=== PATIENT | female | born 1985 | race Caucasian/White ===

== ENCOUNTER 2017-10-25 21:36 | Emergency (ER) | payer OTHER ==
[2017-10-26 00:18] LABS: GLUCOSE, URINE (UA) NEGATIVE (NEGATIVE); KETONES,URINE (UA) 15 mg/dL (NEGATIVE); LEUKOCYTE ESTERASE, URINE NEGATIVE (NEGATIVE); NITRITE,URINE NEGATIVE (NEGATIVE); OCCULT BLOOD,URINE MODERATE (NEGATIVE); PH,URINE 5.5 PH (5.0-7.5); PROTEIN,URINE 30 mg/dL (NEGATIVE); UROBILINOGEN,URINE 0.2 (NORMAL) E.U./dL (NORMAL)
[2017-10-26 00:20] LABS: CLARITY,URINE CLEAR (CLEAR)
[2017-10-26 00:22] LABS: BILIRUBIN,URINE NEGATIVE (NEGATIVE); ICTOTEST,URINE NEGATIVE
[2017-10-26 00:25] LABS: BACTERIA,URINE Few /HPF (None Seen); SQUAMOUS EPITHELIAL CELL,UR MOD Squamous (<= Few)
[2017-10-26 00:26] LABS: MUCUS,URINE Few Strands
--- NOTE | 2017-10-26 00:55 | ED Physician Documentation ---
PD HPI BACK PAIN - Stated complaint Stated Complaint: MID/LOW BACK PX/ABDOM PAIN - Chief complaint Chief Complaint: Abd Pain - History obtained from History obtained from: Patient - History of Present Illness Timing - onset: Today Timing - details: Abrupt onset, Intermittant Location: Mid, Right, Left Quality: Pain Associated symptoms: No: Fever, Weakness, Numbness, Incontinent of urine, Unable to urinate, Hematuria, Incontinent of stool Improves with: Nothing Worsened by: No: Movement, Lifting, Twisting, Palpation Similar symptoms before: Has not had sx before Recently seen: Not recently seen - Additional information Additional information: c/o abdominal pain bilaterally radiating around to back associated with nausea, episodic throughout the day without apparent exacerbating or ameliorating factors Review of Systems Constitutional: reports: Reviewed and negative Cardiac: reports: Reviewed and negative Respiratory: reports: Reviewed and negative GI: reports: Abdominal Pain, Nausea. denies: Vomiting, Constipation, Diarrhea : denies: Dysuria, Frequency PD PAST MEDICAL HISTORY - Past Medical History Neuro: Headache/migraine - Past Surgical History /[facility]: section HEENT: Tonsil/Adenoidectomy - Present Medications Home Medications: Ambulatory Orders Medication Instructions Recorded Confirmed Loratadine [Claritin] 10 mg PO 10/25/17 Montelukast [Singulair] 10/25/17 SUMAtriptan [Imitrex] 25 mg PO 10/25/17 Topiramate [Topamax] 10/25/17 Levonorgestrel [Mirena] 1 each IY 10/26/17 Ondansetron Odt [Zofran] 4 mg TL Q6H PRN #10 tablet 10/26/17 - Allergies Allergies/Adverse Reactions: Allergies Allergy/AdvReac Type Severity Reaction Status Date / Time thimerosal Allergy Unknown Verified 10/25/17 21:47 - Social History Does the pt smoke?: No Smoking Status: Never smoker Does the pt drink ETOH?: No Does the pt have substance abuse?: No - Immunizations Immunizations are current?: Yes - POLST Patient has POLST: No PD ED PE NORMAL - Vitals Vital signs reviewed: Yes - General General: Alert and oriented X 3, No acute distress, Well developed/nourished - HEENT HEENT: Moist mucous membranes - Cardiac Cardiac: RRR, No murmur - Respiratory Respiratory: No respiratory distress, Clear bilaterally - Abdomen Abdomen: Normal bowel sounds, Soft, Non tender, Non distended - Back Back: No CVA TTP - Derm Derm: Normal color, Warm and dry, No rash - Extremities Extremities: No edema Results - Vitals Vitals: Vital Signs - 24 hr 10/25/17 10/25/17 10/26/17 21:45 23:57 00:15 Temperature 36.7 C 36.9 C Heart Rate 95 57 L 93 Respiratory 15 20 16 Rate Blood Pressure 134/97 H 111/66 120/70 O2 Saturation 97 97 100 10/26/17 10/26/17 02:37 04:20 Temperature 36.0 C L 36.6 C Heart Rate 74 73 Respiratory 20 15 Rate Blood Pressure 114/63 115/59 L O2 Saturation 98 100 Oxygen O2 Source Room air - Labs Labs: Laboratory Tests 10/26/17 10/26/17 10/26/17 00:00 00:03 01:43 WBC 8.2 RBC 4.45 Hgb 14.2 Hct 41.2 MCV 92.6 MCH 31.9 H MCHC 34.4 RDW 12.5 Plt Count 217 MPV 9.0 Neut # 7.4 H Lymph # 0.5 L [place] # 0.3 Eos # 0.0 Baso # 0.0 Absolute Nucleated RBC 0.00 Nucleated RBC % 0.0 Sodium Potassium Chloride Carbon Dioxide Anion Gap BUN Creatinine Estimated GFR (MDRD) Glucose Calcium Total Bilirubin AST ALT Alkaline Phosphatase Total Protein Albumin Globulin Albumin/Globulin Ratio Lipase Urine Color YELLOW Urine Clarity CLEAR Urine pH 5.5 Ur Specific [place] >=1.030 H >1.030 Urine Protein 30 H Urine Glucose (UA) NEGATIVE Urine Ketones 15 H Urine Occult Blood MODERATE H Urine Nitrite NEGATIVE Urine Bilirubin NEGATIVE Urine Urobilinogen 0.2 (NORMAL) Ur Leukocyte Esterase NEGATIVE Urine RBC 6-10 H Urine WBC 0-3 Ur Squamous Epith Cells MOD Squamous H Urine Bacteria Few Urine Mucus Few Strands Ur Microscopic Review INDICATED Urine Culture Comments NOT INDICATED Urine HCG, Qual NEGATIVE 10/26/17 01:43 WBC RBC Hgb Hct MCV MCH MCHC RDW Plt Count MPV Neut # Lymph # [place] # Eos # Baso # Absolute Nucleated RBC Nucleated RBC % Sodium 136 Potassium 3.6 Chloride 103 Carbon Dioxide 22 Anion Gap 11.0 BUN 17 Creatinine 0.9 Estimated GFR (MDRD) 72 L Glucose 146 H Calcium 9.2 Total Bilirubin 0.4 AST 21 ALT 18 Alkaline Phosphatase 59 Total Protein 8.1 Albumin 4.4 Globulin 3.7 Albumin/Globulin Ratio 1.2 Lipase 25 Urine Color Urine Clarity Urine pH Ur Specific [place] Urine Protein Urine Glucose (UA) Urine Ketones Urine Occult Blood Urine Nitrite Urine Bilirubin Urine Urobilinogen Ur Leukocyte Esterase Urine RBC Urine WBC Ur Squamous Epith Cells Urine Bacteria Urine Mucus Ur Microscopic Review Urine Culture Comments Urine HCG, Qual - Rads (name of study) RUQ US Radiology: Prelim report reviewed, See rad report PD MEDICAL DECISION MAKING - ED course Complexity details: reviewed results, re-evaluated patient, considered differential, d/w patient Departure - Departure Disposition: 01 Home, Self Care Clinical Impression: Abdominal pain Condition: Good Instructions: ED Abdominal Pain Unkn Cause Follow-Up: ANDREA WILSON [Primary Care Provider] - Within 1 week Prescriptions: Ondansetron Odt [Zofran] 4 mg TL Q6H PRN #10 tablet PRN Reason: Nausea / Vomiting Discharge Date/Time: 10/26/17 04:23
[2017-10-26] MEDS ORDERED: ONDANSETRON 4 MG/2 ML VIAL IVP STA (01:47)
[2017-10-26] MEDS ORDERED: SODIUM CHLORIDE 0.9% 1,000 ML IV STA (01:47)
[2017-10-26 01:51] LABS: HCG UR QUAL NEGATIVE
[2017-10-26 02:01] LABS: BASOPHILS % (AUTO) 0.2 %; HGB - HEMOGLOBIN 14.2 g/dL (12.0-16.0); LYMPHOCYTES # (AUTO) 0.5 10^3/uL (1.5-3.5); LYMPHOCYTES % (AUTO) 5.8 %; MEAN CORPUSCULAR HEMOGLOBIN 31.9 pg (27.0-31.0); MEAN CORPUSCULAR HGB CONC 34.4 g/dL (32.0-36.0); MEAN CORPUSCULAR VOLUME 92.6 fL (81.0-99.0); MONOCYTES # (AUTO) 0.3 10^3/uL (0.0-1.0); MONOCYTES % (AUTO) 3.2 %; NEUTROPHILS # (AUTO) 7.4 10^3/uL (1.5-6.6); NEUTROPHILS % (AUTO) 90.8 %; PLT - PLATELET COUNT 217 10^3/uL (130-450); RED BLOOD COUNT 4.45 10^6/uL (4.20-5.40); RED CELL DISTRIBUTION WIDTH 12.5 % (12.0-15.0); WHITE BLOOD COUNT 8.2 x10^3/uL (4.8-10.8)
[2017-10-26 02:05] LABS: ALBUMIN 4.4 g/dL (3.2-5.5); ALBUMIN/GLOBULIN RATIO 1.2 (1.0-2.2); BILIRUBIN,TOTAL 0.4 mg/dL (0.2-1.0); CALCIUM 9.2 mg/dL (8.5-10.3); CREATININE 0.9 mg/dL (0.4-1.0); TOTAL PROTEIN 8.1 g/dL (6.7-8.2)
[2017-10-26] MEDS ORDERED: KETOROLAC 60 MG/2 ML VIAL IVP STA (02:27)
--- NOTE | 2017-10-26 03:11 | Ultrasound Report ---
EXAM: ABDOMEN ULTRASOUND LIMITED, RUQ EXAM DATE: 10/26/2017 03:03 AM. CLINICAL HISTORY: Abdominal pain. COMPARISON: None. TECHNIQUE: Real-time scanning was performed with static images obtained. FINDINGS: Liver: Normal in size and echotexture. 17.2 cm. Main portal vein flow: Hepatopetal. Gallbladder: Normal. No stones, wall thickening, or sonographic Pace's sign. Biliary System: CBD measures 4 mm. No intrahepatic or extrahepatic ductal dilatation. Other: The visualized portions of the pancreas appear normal. Right kidney measures 10.6 cm and appea rs normal. Inferior vena cava is patent. IMPRESSION: Normal. No cholelithiasis or cholecystitis. [facility] Referring Provider Line: [phone] SITE ID: [id number]
--- NOTE | 2017-10-26 03:11 | Ultrasound Preliminary Report ---
Exam: US ABDOMEN LIMITED IMPRESSION: Normal. No cholelithiasis or cholecystitis. [facility] SITE ID: [id number]
[2017-10-26 04:22] VITALS: BP 115/59
== END 2017-10-26 04:23 | disposition home or self-care (01) ==
LOC: ED 21:36
DX: R10.9 Unspecified abdominal pain (principal)
CPT/HCPCS: 36415; 76705; 80053; 81001; 81003; 81025; 83690; 85025; 87086; 96361; 96374; 96375; 99283; 99284

== ENCOUNTER 2018-02-04 08:37 | Outpatient (CLI) | payer OTHER ==
[2018-02-04] MEDS ORDERED: GADOBUTROL 10 MMOL/10 ML VIAL ONE (08:54)
[2018-02-04] MEDS ORDERED: GADOBUTROL 10 MMOL/10 ML VIAL IVP ONE (11:17)
--- NOTE | 2018-02-04 18:28 | MRI Report ---
Procedure Date: 02/04/2018 Accession Number: [id number] / [id number] Procedure: MRI - Pelvis W/WO CPT Code: FULL RESULT: EXAM: MRI PELVIS WITHOUT AND WITH CONTRAST (MR IVP) EXAM DATE: 02/04/2018 10:35 AM. CLINICAL HISTORY: Pelvic and perineal pain. Additional history: Chronic pelvic and bladder pain. approximately 4 months with persistent bladder pain. (Pain when bladder full and at times when voiding ), more intense related to menstrual cycles. Mirena IUD in place (the pain proceeded IUD insertion). Cystoscopy normal. COMPARISON: Right upper quadrant ultrasound 10/26/2017. TECHNIQUE: Multiplanar, multisequence T1-weighted and fluid-sensitive sequences of the abdomen and pelvis before and after administration of intravenous. DWI sequences also obtained IV contrast: 7 mL Gadavist. Other: None. FINDINGS: Reproductive Organs: Uterus: The uterus is anteverted and measures 6.9 x 4.0 x 4.5 cm cm with volume 65 cc. The endometrial stripe measures 4 mm. There are no uterine masses. Artifact in the lower uterine segment anteriorly in keeping with section. IUD not well appreciated. If there is concern for malpositioned IUD consider pelvic ultrasound for further evaluation Left Ovary: The right ovary measures 2.2 x 1.9 x 1.4 cm with volume 3 cc. The left ovary appears normal with multiple follicles present. No evidence of endometrioma, though only wide [id number] coronal fat-saturated T1 sequences performed through the pelvis. Right Ovary: The left ovary measures 1.8 x 2.6 x 2.0 cm with volume 5 cc. The right ovary appears normal. No evidence of endometrioma, though only wide field of view coronal fat-saturated T1 sequences performed through the pelvis. Bowel: The visualized portions of the small bowel, colon, and rectum appear normal. The appendix is visualized and normal. Bladder: The urinary bladder appears normal. Other: Liver is normal in size and signal. No mass. Gallbladder and bile ducts are unremarkable. Pancreas is within normal limits. Spleen is unremarkable. No renal mass or hydronephrosis. Delayed phase postcontrast coronal images are suboptimal due to motion artifact but no definite mass, filling defect, stricture or other abnormality demonstrated of the collecting systems or ureters. Sensitivity for calculi is limited by MR. No abnormally enlarged lymph nodes. Trace free fluid in the pelvis is likely physiologic. No abdominal aortic aneurysm. Portal and hepatic veins are patent. No significant atherosclerosis. Osseous structures unremarkable. IMPRESSION: Unremarkable MR IVP. Specifically without cause for pelvic and perineal pain demonstrated. No urinary obstruction or urinary tract mass demonstrated. While somewhat suboptimal technique there is no evidence of endometrioma. [facility]
== END 2018-02-04 08:38 | disposition home or self-care (01) ==
LOC: DI 08:37
PROVIDERS: ATTEND Obstetrics & Gynecology
DX: R10.2 Pelvic and perineal pain (principal)
CPT/HCPCS: 72197; 74183; A9585

== ENCOUNTER 2019-02-19 09:06 | Outpatient (CLI) | payer OTHER | END 2019-02-19 09:07 | disposition home or self-care (01) | LOC: LAB 09:06 | PROVIDERS: ATTEND Otolaryngology | DX: H81.319 Aural vertigo, unspecified ear (principal) | CPT/HCPCS: 36415; 84132 ==

== ENCOUNTER 2019-03-13 07:59 | Day surgery (SDC) | payer OTHER ==
[2019-03-13] MEDS ORDERED: CEFAZOLIN SODIUM IN 0.9 % NACL 2 GM/100 ML BAG IV ONE (08:01)
[2019-03-13] MEDS ORDERED: LACTATED RINGERS 1,000 ML IV ONE ×2 (08:02→11:47)
--- NOTE | 2019-03-13 08:18 | ANESTHESIA ---
Pre-Anesthesia VS, & Labs - Diagnosis L CTS - Procedure L CTR Height 5 ft 3 in Weight (kg) 82.1 kg Body Mass Index 30.1 - NPO >8 hours - Is Patient ?: No - Lab Results Lab results reviewed: Yes Home Medications and Allergies Home Medications: Ambulatory Orders Levonorgestrel 20 Mcg/24H [Mirena] 1 each IY 02/24/19 Triamterene/Hydrochlorothiazid [Triamterene-Hctz 37.5-25 mg Tb] 1 each PO DAILY 02/24/19 raNITIdine HCl [Zantac] 150 mg PO DAILY 02/24/19 Loratadine [Claritin] 10 mg PO DAILY 10/25/17 Levonorgestrel 20 Mcg/24H [Mirena] 1 each IY 02/24/19 Triamterene/Hydrochlorothiazid [Triamterene-Hctz 37.5-25 mg Tb] 1 each PO 02/24/19 raNITIdine HCl [Zantac] 150 mg PO 02/24/19 Allergies/Adverse Reactions: Allergies Allergy/AdvReac Type Severity Reaction Status Date / Time grass pollen-perennial rye, Allergy Itching Verified 02/24/19 10:16 standar thimerosal Allergy Edema Verified 02/24/19 10:16 Anes History & Medical History - Anesthetic History Anesthesia Complications: reports: No previous complications Family history of Anesthesia Complications: Denies Family history of Malignant Hyperthermia: Denies - Medical History Cardiovascular: reports: None Pulmonary: reports: None Gastrointestinal: reports: GERD (well controlled w meds) Urinary: reports: None Musculoskeletal: reports: Other Endocrine/Autoimmune: reports: None Skin: reports: Eczema Smoking Status: Never smoker - Surgical History General: Colonoscopy, EGD Eyes Ears Nose Throat (EENT): Myringotomy (tubes), Other Gynecologic: section Orthopedic: Other Exam General: Alert, Oriented x3, Cooperative Dental: WNL Mouth Openin Fingerbreadth Neck Mobility: Normal Mallampati classification: II Thyromental Distance: 4-6 cm Respiratory: Lungs clear, Normal breath sounds, No respiratory distress Cardiovascular: Regular rate Neurological: Normal speech Mental/Cognitive Status: Alert/Oriented X3, Normal for patient Cognitive Status: Within normal limits Plan Anesthesia Type: General Consent for Procedure(s) Verified and Reviewed: Yes Code Status: Attempt Resuscitation ASA classification: 2-Mild systemic disease Is this case an emergency?: No
[2019-03-13 08:24] LABS: HCG UR QUAL NEGATIVE
[2019-03-13] MEDS ORDERED: BUPIVACAINE 0.25% PF 30 ML VIAL ONE (10:15)
[2019-03-13] MEDS ORDERED: BUPIVACAINE 0.25% PF 30 ML VIAL SUBQ ONE ×2 (10:55)
[2019-03-13] MEDS ORDERED: oxyCODONE 5 MG TABLET PO PRN (11:23)
[2019-03-13] MEDS ORDERED: ONDANSETRON 4 MG/2 ML VIAL IVP PRN (11:23)
--- NOTE | 2019-03-13 11:25 | OPERATIVE REPORT ---
Operative Report - Other Other Information/Narrative: Date of Surgery: 13 March 2019 Pre-Op Diagnosis: Left carpal tunnel syndrome Procedure: Left open carpal tunnel release Postop Diagnosis: Left carpal tunnel syndrome Primary Surgeon: Hernandez Hernandez Secondary Surgeon: None Complications: None Tourniquet Time: 5 minutes EBL: 2 cc Indication For Surgery: 33-year-old female with many year history of hand numbness consistent with carpal tunnel syndrome. She partially responded to conservative measures but these lost their effect over time. She desired operative management for definitive treatment. The risks, benefits, and alternatives were discussed. Risks include pain, bleeding, infection, damage to nearby structures, numbness, pillar pain, lack of symptom relief, need for further surgery, DVT, PE, stroke, and . Written consent was obtained. The patient was met in the preoperative holding on the day of the procedure. Operative extremity was signed. Consent was verified. They desire to proceed. They were brought to the operating room and placed in the supine position. A well-padded forearm tourniquet was applied. They were prepped and draped in the standard fashion. A surgical timeout was held will be confirmed the patient procedure, identity, allergies, antibiotics, images and laterality. All were in agreement we proceeded. An Esmarch was used to exsanguinate the limb and the tourniquet was elevated to 250 mmHg. A 3cm longitudinal incision was made in line with the ulnar border of the ring finger starting at Goodwin's Cardinal line distally. This was just radial to the hook of the hamate. Bipolar electrocautery was used at the skin edge. Sharp dissection was brought down through the palmar fascia. Retractors were placed. The transverse carpal ligament was identified and a knife was used to separate it. The contents of the carpal tunnel were seen. Knife dissection was used to release the ligament as far proximal as could be visualized. Long handled Metzenbaum scissors were then used to create a pocket just superficial to the transverse carpal ligament and a retractor was placed. I then used a long handled Metzenbaum with the tips pointed ulnarly to complete the release 2 cm into the antebrachial fascia. Retractors were then moved distally and I confirmed complete release in the appearance of fat in the palm. A freer elevator was used to confirm complete release both proximally and distally. The wound was packed with a moist gauze and the tourniquet was deflated. After holding for 3 minutes the gauze was removed and bleeding was coming from the skin edge. Bleeding was controlled with bipolar electrocautery. The wound was closed with 3-0 nylon in a horizontal mattress configuration. 3 cc of local anesthetic was placed. A sterile bulky dressing was applied. She was awakened and transferred to the recovery room.
[2019-03-13 12:05] VITALS: BP 106/69
== END 2019-03-13 08:00 | disposition home or self-care (01) ==
LOC: SDS 07:59
PROVIDERS: ATTEND Orthopaedic Surgery
PROC: 01N50ZZ Release Median Nerve, Open Approach (ICD-10-PCS; principal; 2019-03-13 09:15)
DX: G56.03 Carpal tunnel syndrome, bilateral upper limbs (principal)
CPT/HCPCS: 64721; 81025; J0690; J7120

== ENCOUNTER 2020-03-11 15:47 | Outpatient (CLI) | payer OTHER ==
--- NOTE | 2020-03-11 16:46 | MRI Report ---
PROCEDURE: Lumbar Spine W/O INDICATIONS: RADICULOPATHY TECHNIQUE: Noncontrast sagittal T1 spin echo and T2 fast echo, sagittal STIR, axial T1 and T2 fast spin echo thr ough the lumbar spine. In cases with scoliosis, additional coronal T2 fast spin echo may be performe d. COMPARISON: None. FINDINGS: Image quality: Excellent. Alignment and Curvature: There is normal bony alignment. In the absence of plain films for comparis on it is assumed that there are 5 nonrib-bearing lumbar vertebral bodies, and that axial imaging was obtained from T12-L1 through L5-S1. Bone Marrow: Marrow is of normal overall signal. No acute vertebral body compression fractures. Spinal Cord: Conus medullaris terminates at the T12-L1 level. Visualized cord demonstrates normal s ignal and size. Paraspinous Soft Tissues: No paravertebral masses. T12-L1: No canal stenosis or foraminal stenosis L1-L2: No canal stenosis or foraminal stenosis L2-L3: No canal stenosis or foraminal stenosis L3-L4: No canal stenosis or foraminal stenosis L4-L5: No canal stenosis or foraminal stenosis L5-S1: There is right posterior disc protrusion associated with a small extruded disc fragment which obliterates the right S1 nerve root in the right lateral recess. Total measurement of the protruded a nd extruded disc material is approximately 15 x 10 x 9 mm. Reference image 9/501 (T2 sagittal sequenc e) and image 5/801 (T2 axial sequence). Neuroforamina are patent. IMPRESSION: 1. It is assumed that there are 5 nonrib-bearing lumbar vertebral bodies and that axial imaging was o btained T12-L1 through L5-S1. If surgery is planned, careful correlation with imaging is suggested. 2. A right posterior disc protrusion/extrusion at L5-S1 obliterates the right S1 nerve root in the ri ght lateral recess. Reviewed by: Román Mei MD on 03/11/2020 4:45 PM PDT Approved by: Román Mei MD on 03/11/2020 4:45 PM PDT Station ID: [id number]
== END 2020-03-11 15:48 | disposition home or self-care (01) ==
LOC: DI 15:47
PROVIDERS: ATTEND General Practice
DX: M51.17 Intervertebral disc disorders with radiculopathy, lumbosacral region (principal)
CPT/HCPCS: 72148